=== PATIENT | male | born 1990 | race Caucasian/White ===

== ENCOUNTER → 2016-11-18 | Outpatient (CLI) | payer MEDICAID | LOC: M OUTALCOH 07:37 | PROVIDERS: ATTEND Psychiatry & Neurology Psychiatry | DX: Z13.9 Encounter for screening, unspecified (principal); F15.20 Other stimulant dependence, uncomplicated; F11.20 Opioid dependence, uncomplicated; F12.10 Cannabis abuse, uncomplicated ==

== ENCOUNTER 2016-12-05 08:00 | Outpatient (RCR) | payer MEDICAID | END 2016-12-08 | LOC: M OUTALCOH 08:00 | PROVIDERS: ATTEND Psychiatry & Neurology Psychiatry | DX: Z13.9 Encounter for screening, unspecified (principal); F15.20 Other stimulant dependence, uncomplicated; F11.20 Opioid dependence, uncomplicated; F12.10 Cannabis abuse, uncomplicated; F17.200 Nicotine dependence, unspecified, uncomplicated ==

== ENCOUNTER 2017-01-01 13:30 | Outpatient (RCR) | payer MEDICAID | END 2017-01-08 | LOC: M OUTALCOH 13:30 | PROVIDERS: ATTEND Psychiatry & Neurology Psychiatry | DX: Z13.9 Encounter for screening, unspecified (principal); F15.20 Other stimulant dependence, uncomplicated; F11.20 Opioid dependence, uncomplicated; F12.10 Cannabis abuse, uncomplicated; F17.200 Nicotine dependence, unspecified, uncomplicated ==

== ENCOUNTER 2017-02-03 13:00 | Outpatient (RCR) | payer MEDICAID | END 2017-02-07 | LOC: M OUTALCOH 13:00 | PROVIDERS: ATTEND Psychiatry & Neurology Psychiatry | DX: Z13.9 Encounter for screening, unspecified (principal); F15.20 Other stimulant dependence, uncomplicated; F11.20 Opioid dependence, uncomplicated; F12.10 Cannabis abuse, uncomplicated; F17.200 Nicotine dependence, unspecified, uncomplicated ==

== ENCOUNTER → 2017-04-03 | Outpatient (CLI) | payer MEDICAID | LOC: M OUTALCOH 07:58 | PROVIDERS: ATTEND Psychiatry & Neurology Psychiatry | DX: F11.20 Opioid dependence, uncomplicated (principal); F12.20 Cannabis dependence, uncomplicated ==

== ENCOUNTER 2017-04-26 22:19 | Emergency (ER) | payer MEDICAID, OTHER ==
[~2017-04-26] VITALS: Ht 182.9 cm; Wt 100.0 kg
[2017-04-26 22:20] VITALS: BP 132/84
--- NOTE | 2017-04-27 13:51 | REP ---
Clinical: Trauma Technique: AP and Lateral of the right forearm. Findings: There is an acute nondisplaced radial head fracture with swelling and effusion. Remainder of the exam is normal. Impression: Nondisplaced acute radial head fracture. Effusion. Signed by Krishna Rodriguez MD 04/27/2017 01:43 P
== END 2017-04-27 00:06 | disposition home or self-care (01) ==
LOC: M ED 22:19
DX: S52.124A Nondisplaced fracture of head of right radius, initial encounter for closed fracture (principal); Z72.0 Tobacco use; W01.198A Fall on same level from slipping, tripping and stumbling with subsequent striking against other object, initial encounter; Y92.89 Other specified places as the place of occurrence of the external cause; Y93.01 Activity, walking, marching and hiking; Y99.9 Unspecified external cause status

== ENCOUNTER 2017-05-06 16:00 | Outpatient (RCR) | payer MEDICAID | END 2017-05-10 | LOC: M OUTALCOH 16:00 | PROVIDERS: ATTEND Psychiatry & Neurology Psychiatry | DX: F15.20 Other stimulant dependence, uncomplicated (principal); F11.20 Opioid dependence, uncomplicated; F12.20 Cannabis dependence, uncomplicated; F17.200 Nicotine dependence, unspecified, uncomplicated ==

== ENCOUNTER → 2017-10-08 | Outpatient (CLI) | payer MEDICAID | LOC: M OUTALCOH 07:45 | DX: F12.20 Cannabis dependence, uncomplicated (principal) ==

== ENCOUNTER 2017-10-17 13:11 | Outpatient (RCR) | payer MEDICAID, SELFPAY | END 2017-11-08 | LOC: M OUTALCOH 10-24 10:00 | DX: F15.20 Other stimulant dependence, uncomplicated (principal); F11.20 Opioid dependence, uncomplicated; F12.20 Cannabis dependence, uncomplicated; F17.200 Nicotine dependence, unspecified, uncomplicated ==

== ENCOUNTER → 2020-06-15 | Outpatient (CLI) | payer MEDICAID, SELFPAY ==
--- NOTE | 2020-06-15 14:10 | REP ---
INDICATION: ANKLE AND FOOR SPRAIN. COMPARISON: Right foot this date TECHNIQUE: Four views FINDINGS: The distal tibia and fibula without fracture or focal lesion. The ankle mortise joint with symmetric and preserved. No talar dome osteochondral defect. There is prominent soft tissue swelling over the anterolateral aspect of the ankle. Subtalar joints were intact there are no heel spurs. I see no avulsion or fractures anywhere about the ankle or hindfoot. Talonavicular and calcaneocuboid joints normal. Visualized tarsal bones and proximal metatarsals are intact. IMPRESSION: 1. Soft tissue swelling anterolateral aspect of the ankle without fracture, avulsion, disruption of the mortise joint or other acute bony finding. <Electronically signed by Pepe Bond > 06/15/20 [id number]
--- NOTE | 2020-06-15 14:12 | REP ---
INDICATION: ANKLE AND FOOR SPRAIN. COMPARISON: Ankle series this date TECHNIQUE: Four views FINDINGS: Soft tissue swelling anterolateral aspect of the ankle. Subtalar joints intact. No heel spurs. Talus, calcaneus tarsal bones and metatarsals are all without fracture or focal lesion articulations intact MCP and IP joints along with phalanges were unremarkable no abnormal soft tissue calcification IMPRESSION: 1. Some soft tissue swelling anterolateral aspect of the ankle and hindfoot without visible or displaced fracture, avulsion, heel spur or other acute bony finding. <Electronically signed by Pepe Bond > 06/15/20 [id number]
== END ==
LOC: M WUC 13:35
PROVIDERS: ATTEND Physician Assistant
DX: M25.471 Effusion, right ankle (principal); S93.401A Sprain of unspecified ligament of right ankle, initial encounter; S93.601A Unspecified sprain of right foot, initial encounter; X58.XXXA Exposure to other specified factors, initial encounter; Y92.9 Unspecified place or not applicable; Y99.9 Unspecified external cause status

== ENCOUNTER 2023-03-18 23:01 | Emergency (ER) | payer SELFPAY ==
[~2023-03-18] VITALS: Ht 182.9 cm; Wt 77.3 kg
[2023-03-18 23:13] VITALS: TEMP 98.9
[2023-03-18] MEDS ORDERED: NS 1,000 ML IV ONE (23:20)
[2023-03-18 23:32] LABS: VENOUS BASE EXCESS -1.5 (-2.0-2.0); VENOUS HCO3 24.4 MMOL/L (23.0-27.0); VENOUS O2 SATURATION 99.2 % (60.0-80.0); VENOUS PARTIAL PRESSURE CO2 45.4 mmHg (38.0-50.0); VENOUS PARTIAL PRESSURE O2 167.8 mmHg (30.0-50.0); VENOUS PH 7.348 UNITS (7.330-7.430); VENOUS STANDARD HCO3 23.3 MMOL/L; VENOUS TOTAL CO2 25.8 MMOL/L (24.0-28.0)
[2023-03-18 23:39] LABS: BASO % 0.4 % (0.0-1.0); EOS # 0.1 10^3/uL (0.0-0.5); EOS % 2.1 % (0.0-3.0); HEMOGLOBIN 13.6 g/dl (13.5-17.5); LYMPH # 2.1 10^3/uL (1.5-5.0); LYMPH % 30.3 % (24.0-44.0); MEAN CORPUSCULAR HGB CONC 32.4 g/dl (32.0-36.5); MEAN CORPUSCULAR VOLUME 92.5 fl (80.0-96.0); MONO # 0.5 10^3/uL (0.0-0.8); MONO % 7.1 % (2.0-8.0); NEUTROPHILS # 4.1 10^3/uL (1.5-8.5); PLATELET COUNT, AUTOMATED 255 10^3/uL (150-450); RED BLOOD COUNT 4.54 10^6/uL (4.30-6.10); WHITE BLOOD COUNT 6.8 10^3/uL (4.0-10.0)
[2023-03-19 00:01] LABS: ETHYL ALCOHOL (ETHANOL) < 0.003 % (0.000-0.010)
[2023-03-19 00:02] LABS: ACETAMINOPHEN LEVEL < 2.0 UG/ML (10.0-20.0)
[2023-03-19 00:03] LABS: CPK CREATINE PHOSPHOKINASE 68 U/L (46-171); SALICYLATE LEVEL < 3.0 MG/DL (<30)
[2023-03-19 00:06] LABS: ALKALINE PHOSPHATASE 70 U/L (46-116); ALT/SGPT 15 U/L (7.0-40); AST/SGOT < 8 U/L (<34); BILIRUBIN,DIRECT 0.1 MG/DL (<0.4); BILIRUBIN,TOTAL 0.3 MG/DL (0.3-1.2); BLOOD UREA NITROGEN 19 MG/DL (9-23); CALCIUM LEVEL 9.1 MG/DL (8.5-10.1); CARBON DIOXIDE LEVEL 30 MMOL/L (20-31); CHLORIDE LEVEL 106 MMOL/L (98-107); CREATININE FOR GFR 1.39 MG/DL (0.70-1.30); GLOMERULAR FILTRATION RATE > 60.0 (>60); GLUCOSE, FASTING 98 MG/DL (60-100); POTASSIUM SERUM 4.3 MMOL/L (3.5-5.1); SODIUM LEVEL 143 MMOL/L (136-145); THYROID STIMULATING HORMONE 2.325 uIU/ML (0.55-4.78); TOTAL PROTEIN 6.8 G/DL (5.7-8.2)
[2023-03-19] MEDS ORDERED: NS 2,320 ML in IV 1 EA IV ONE (00:20)
[2023-03-19 04:30] VITALS: BP 109/63
[2023-03-19 04:33] VITALS: O2SAT 100
== END 2023-03-19 04:52 | disposition home or self-care (01) ==
LOC: M ED 23:01
DX: F19.10 Other psychoactive substance abuse, uncomplicated (principal); F17.200 Nicotine dependence, unspecified, uncomplicated